=== PATIENT | male | born 1940 | race Caucasian/White ===

== ENCOUNTER 2023-09-03 18:49 | Inpatient (IN) | payer MEDICARE, OTHER ==
[~2023-09-03] VITALS: Ht 160 cm; Wt 65.2 kg
[~2023-09-03 18:49] MED LIST: AMLO5TAB16 PO; ATOR20TA PO; CALC950T2 PO; CELE-127 PO; CHOL400T58 PO; DABI150C PO; DRON400T6 PO; LIDOcaine 2% (20 mg/ml) 5ml cardiac syringe ONE; MAGNESIUM SULFATE 4 MEQ/ML (5gm/10ml) injection ONE; NORepinephrine 1 mg/ml inj IV ONE; TEST60GE2 TP; UBID100C16 PO; VITA1CAP62 PO; [UNRECOGNIZED DRUG - CODE] LEFTEYE; albumin (human) 25% 100 ML IV solution IV ONE; aminocaproic acid 250 MG/1 ML inj. ONE; calcium chloride 100 MG/1 ML inj IV ONE; heparin 1,000 units/ml 10ml inj ONE; heparin 10,000 units/1 ML INJ ONE; mannitol 12.5gm/50mL VIAL IV ONE; methylPREDNISolone sod succ 1000mg vial ONE; potassium Cl 2 mEq/ml inj IV ONE; sodium bicarbonate (8.4%) 1 mEq/ml syringe ONE
[2023-09-03 20:18] LABS: BASOPHILS # (AUTO) 0.1 X10'3 (0-0.2); BASOPHILS % (AUTO) 1.9 % (0-1); EOSINOPHILS # (AUTO) 0.2 X10'3 (0-0.9); EOSINOPHILS % (AUTO) 3.2 % (0-6); HEMATOCRIT 39.6 % (42.0-52.0); HEMOGLOBIN 13.5 g/dl (14.0-17.9); LYMPHOCYTES # (AUTO) 1.2 X10'3 (1.1-4.8); LYMPHOCYTES % (AUTO) 21.2 % (21-51); MEAN CORPUSCULAR HEMOGLOBIN 33.5 PG (27.0-31.0); MEAN CORPUSCULAR VOLUME 98.4 FL (78-98); MEAN PLATELET VOLUME 7.5 FL (7.4-10.4); MONOCYTES # (AUTO) 0.7 X10'3 (0-0.9); MONOCYTES % (AUTO) 12.5 % (2-12); NEUTROPHILS # (AUTO) 3.6 X10'3 (1.8-7.7); NEUTROPHILS % (AUTO) 61.2 % (42-75); PLATELET COUNT 229 X10'3 (140-440); RED BLOOD COUNT 4.03 X10'6 (4.70-6.10); RED CELL DISTRIBUTION WIDTH 13.9 % (11.5-14.5); WHITE BLOOD COUNT 5.9 X10'3 (4.5-11.0)
[2023-09-03 20:32] LABS: ANION GAP 11 (8-16); BILIRUBIN,TOTAL 0.9 MG/DL (0.1-1.0); BLOOD UREA NITROGEN 12 MG/DL (7-18); CALCIUM 8.6 MG/DL (8.5-10.1); CHLORIDE 102 MMOL/L (99-107); CREATININE 0.75 MG/DL (0.60-1.10); GLUCOSE 85 MG/DL (70-104); SODIUM 136 MMOL/L (135-145); TOTAL CARBON DIOXIDE 23.1 MMOL/L (24-32); TOTAL PROTEIN 6.6 G/DL (6.4-8.2); eCRCL 60 ML/MIN; eGFR > 90 ML/MIN
[2023-09-03 20:33] LABS: ALANINE AMINOTRANSFERASE 30 U/L (12-78); ALBUMIN 3.4 G/DL (3.4-5.0); ALBUMIN/GLOBULIN RATIO 1.1 (1.1-1.5); ALKALINE PHOSPHATASE 44 IU/L (46-116); ASPARTATE AMINO TRANSFERASE 30 U/L (10-37)
[2023-09-03 20:41] LABS: PRO BRAIN NATRIURETIC PEPTIDE 850 PG/ML (0-450)
[2023-09-03] MEDS ORDERED: temazepam 15mg capsule PO PRN (21:00)
[2023-09-03] MEDS ORDERED: potassium Cl 40MEQ/1/2NS 520ml 520 ML IV PRN (23:15)
[2023-09-03] MEDS ORDERED: magnesium 2GM in 50ml NS 50 ML IV PRN (23:15)
[2023-09-03] MEDS ORDERED: normal saline 1000ml 1,000 ML IV SCH (23:15)
[2023-09-03] MEDS ORDERED: HYDROcodone/acetaminophen 5mg/325mg tablet PO PRN (23:15)
[2023-09-03] MEDS ORDERED: magnesium Cl slow-release 64mg tablet PO PRN (23:15)
[2023-09-03] MEDS ORDERED: HYDROcodone/acetaminophen 10/325mg tab PO PRN (23:15)
[2023-09-03] MEDS ORDERED: morphine 2 MG/ML inj. syringe IV PRN ×2 (23:15)
[2023-09-03] MEDS ORDERED: potassium Cl 20 mEq SR tablet PO PRN ×2 (23:15)
[2023-09-03] MEDS ORDERED: ondansetron/PF 4mg/2ml inj IV PRN (23:15)
[2023-09-03] MEDS ORDERED: acetaminophen 325mg tablet PO PRN ×2 (23:15)
[2023-09-03] MEDS ORDERED: mag hydrox/Alum hydrox/simeth 30ml oral suspension PO PRN (23:15)
[2023-09-03] MEDS ORDERED: magnesium 4gm in 100ml NS 100 ML IV PRN (23:15)
[2023-09-03] MEDS ORDERED: magnesium hydroxide 30ml (MOM) UD suspension PO PRN (23:15)
--- NOTE | 2023-09-03 23:30 | NUR ---
pt placed onto in-patient bed
[2023-09-04] MEDS ORDERED: [UNRECOGNIZED DRUG - OTHER] LEFTEYE SCH (04:35)
[2023-09-04] MEDS: atorvastatin 20mg tablet PO SCH (08:00)
[2023-09-04] MEDS: docusate sod 100mg capsule PO SCH ×2 (08:00→20:00)
[2023-09-04] MEDS: amLODIPine 5mg tablet PO SCH (08:00)
[2023-09-04] MEDS: dronedarone hcl 400mg tablet PO SCH ×2 (08:00→21:16)
--- NOTE | 2023-09-04 08:49 | NUR ---
ULTRASOUND PT AT BEDSIDE
--- NOTE | 2023-09-04 08:54 | NUR ---
ED BED 15--NPO OR NOT? [id number]
--- NOTE | 2023-09-04 08:55 | NUR ---
lift team technician at bedside
--- NOTE | 2023-09-04 08:57 | NUR ---
DR THOMPSON CALLED BACK, HE IS UNABLE TO ANSWER QUESTIONS ABOUT PTS NPO STATUS AT THIS TIME, NEEDS TO GO TO A MEETING. WILL HOLD AM MEDS UNTIL ORDERS ARE CLARIFIED
--- NOTE | 2023-09-04 11:39 | NUR ---
Ambulated to restroom, gate steady. Pt positioned back in bed attached to monitors comfortable. denies complaints.
[2023-09-04] MEDS ORDERED: MESSAGE TO PHARMACY IJ ONE (13:20)
[2023-09-04 13:57] LABS: BILIRUBIN,URINE NEGATIVE (Neg); CLARITY,URINE CLEAR (Clear); COLOR,URINE YELLOW (Yellow); GLUCOSE, URINE NEGATIVE (Neg); KETONES,URINE NEGATIVE (Neg); LEUKOCYTE ESTERASE ,URINE NEGATIVE (Neg); NITRITES, URINE NEGATIVE (Neg); OCCULT BLOOD,URINE TRACE-INTACT (Neg); PH,URINE 7.5 (4.8-8.0); PROTEIN,URINE NEGATIVE (Neg)
[2023-09-04 13:59] LABS: UA COLLECTION TYPE CLN CATCH MIDSTREAM
[2023-09-04 14:10] LABS: BACTERIA,URINE FEW /HPF (Neg); SQUAMOUS EPITHELIAL CELL,UR FEW /LPF (FEW); WBC,URINE 0-4 /HPF (0-4)
[2023-09-04 14:26] LABS: ABG BASE EXCESS -2.1 mmol/L (-2.0-2.0); ABG OXYGEN SATURATION 96.5 % (94-97); ABG PCO2 (T) 27.3 mmHg (35.0-48.0); ABG PH (T) 7.481 (7.340-7.440); ABG PO2 (T) 82.4 mmHg (75.0-100.0); ALLEN'S TEST POSITIVE; FCOHb 0.6 % (0.0-3.9); FHHb 3.5 % (0.0-5.0); FMetHb 0.1 % (0.0-1.5); FO2Hb 95.8 % (94-97); MODE ROOM AIR; PATIENT TEMPERATURE 36.6; TOTAL HEMOGLOBIN 14.3 G/dl (14.0-17.9)
[2023-09-04 14:49] LABS: BASOPHILS # (AUTO) 0.1 X10'3 (0-0.2); EOSINOPHILS # (AUTO) 0.2 X10'3 (0-0.9); EOSINOPHILS % (AUTO) 3.5 % (0-6); HEMATOCRIT 39.6 % (42.0-52.0); HEMOGLOBIN 13.6 g/dl (14.0-17.9); LYMPHOCYTES # (AUTO) 1.3 X10'3 (1.1-4.8); MEAN CORPUSCULAR HEMOGLOBIN 33.9 PG (27.0-31.0); MEAN CORPUSCULAR HGB CONC 34.3 g/dL (33.0-36.5); MEAN CORPUSCULAR VOLUME 98.8 FL (78-98); MEAN PLATELET VOLUME 7.8 FL (7.4-10.4); MONOCYTES # (AUTO) 0.4 X10'3 (0-0.9); MONOCYTES % (AUTO) 8.3 % (2-12); NEUTROPHILS # (AUTO) 2.4 X10'3 (1.8-7.7); NEUTROPHILS % (AUTO) 56.2 % (42-75); PLATELET COUNT 238 X10'3 (140-440); RED BLOOD COUNT 4.01 X10'6 (4.70-6.10); RED CELL DISTRIBUTION WIDTH 13.5 % (11.5-14.5); WHITE BLOOD COUNT 4.3 X10'3 (4.5-11.0)
[2023-09-04 15:01] LABS: APTT 30 SECONDS (22-32); INR 1.1 INR; PROTHROMBIN TIME 11.7 SECONDS (9.0-12.0)
[2023-09-04 15:07] LABS: ALANINE AMINOTRANSFERASE 28 U/L (12-78); ALBUMIN 3.3 G/DL (3.4-5.0); ALKALINE PHOSPHATASE 45 IU/L (46-116); ANION GAP 6 (8-16); ASPARTATE AMINO TRANSFERASE 22 U/L (10-37); BLOOD UREA NITROGEN 10 MG/DL (7-18); BUN/CREATININE RATIO 11.2 (10.0-20.0); CALCIUM 8.6 MG/DL (8.5-10.1); CHLORIDE 103 MMOL/L (99-107); CREATININE 0.89 MG/DL (0.60-1.10); GLUCOSE 161 MG/DL (70-104); POTASSIUM 4.4 MMOL/L (3.5-5.1); SODIUM 136 MMOL/L (135-145); TOTAL CARBON DIOXIDE 26.7 MMOL/L (24-32); TOTAL PROTEIN 6.6 G/DL (6.4-8.2); eCRCL 51 ML/MIN; eGFR 82 ML/MIN
[2023-09-04 15:10] LABS: HEMOGLOBIN A1C 5.6 % (4.5-6.2)
[2023-09-04 17:15] VITALS: BP 122/69; PULSE 60; RESP 17; TEMP 98.4; O2SAT 97
--- NOTE | 2023-09-04 19:13 | NUR ---
Problems reprioritized. Patient report given, questions answered & plan of care reviewed with Alisson MENDOZA, patient stable at transfer of care. .
[2023-09-04 20:00] VITALS: RESP 16; O2SAT 98
[2023-09-04] MEDS ORDERED: enoxaparin 40mg/0.4ml syringe SQ SCH (20:00)
--- NOTE | 2023-09-04 20:47 | NUR ---
MD called for pt fluid orders. MD gave order to D/C NS at 20 mL/hr. Order read back and placed per
[2023-09-04 22:00] VITALS: BP 139/72; PULSE 62; RESP 16; TEMP 98.2; O2SAT 99
[2023-09-05] VITALS (7 sets, daily range): BP systolic 102–155; BP diastolic 50–71; PULSE 60–70; RESP 10–22; TEMP 97.2–98.2; O2SAT 96–100
--- NOTE | 2023-09-05 00:43 | NUR ---
MD called for pt having several pauses on tele, not sustaining. MD is aware of rate controlled a-fib, occasional pauses lasting up to 2.46 seconds, and occasional dips in HR down to 44 without sustaining. No orders given at this time
--- NOTE | 2023-09-05 06:27 | NUR ---
Problems reprioritized. Patient report given, questions answered & plan of care reviewed with Hannah MENDOZA. Pt stable at transfer of care
[2023-09-05] MEDS: dronedarone hcl 400mg tablet PO SCH ×2 (09:40→19:43)
[2023-09-05] MEDS: amLODIPine 5mg tablet PO SCH (09:40)
[2023-09-05] MEDS: docusate sod 100mg capsule PO SCH ×2 (09:41→19:43)
[2023-09-05] MEDS: atorvastatin 20mg tablet PO SCH (09:41)
[2023-09-05] MEDS ORDERED: ringers solution, lacted 1,000 ML IV ONE (09:45)
[2023-09-05 10:04] LABS: BASOPHILS # (AUTO) 0.1 X10'3 (0-0.2); BASOPHILS % (AUTO) 1.3 % (0-1); EOSINOPHILS # (AUTO) 0.2 X10'3 (0-0.9); EOSINOPHILS % (AUTO) 4.2 % (0-6); HEMATOCRIT 41.3 % (42.0-52.0); HEMOGLOBIN 14.1 g/dl (14.0-17.9); LYMPHOCYTES # (AUTO) 1.1 X10'3 (1.1-4.8); LYMPHOCYTES % (AUTO) 25.3 % (21-51); MEAN CORPUSCULAR HEMOGLOBIN 33.7 PG (27.0-31.0); MEAN CORPUSCULAR HGB CONC 34.1 g/dL (33.0-36.5); MEAN CORPUSCULAR VOLUME 98.8 FL (78-98); MEAN PLATELET VOLUME 7.9 FL (7.4-10.4); MONOCYTES # (AUTO) 0.4 X10'3 (0-0.9); MONOCYTES % (AUTO) 8.3 % (2-12); NEUTROPHILS # (AUTO) 2.7 X10'3 (1.8-7.7); NEUTROPHILS % (AUTO) 60.9 % (42-75); PLATELET COUNT 245 X10'3 (140-440); RED BLOOD COUNT 4.18 X10'6 (4.70-6.10); RED CELL DISTRIBUTION WIDTH 13.6 % (11.5-14.5); WHITE BLOOD COUNT 4.4 X10'3 (4.5-11.0)
[2023-09-05 10:19] LABS: ALANINE AMINOTRANSFERASE 25 U/L (12-78); ALBUMIN 3.3 G/DL (3.4-5.0); ALKALINE PHOSPHATASE 44 IU/L (46-116); ANION GAP 6 (8-16); ASPARTATE AMINO TRANSFERASE 23 U/L (10-37); BILIRUBIN,TOTAL 0.7 MG/DL (0.1-1.0); BLOOD UREA NITROGEN 11 MG/DL (7-18); BUN/CREATININE RATIO 13.6 (10.0-20.0); CALCIUM 8.9 MG/DL (8.5-10.1); CHLORIDE 100 MMOL/L (99-107); CREATININE 0.81 MG/DL (0.60-1.10); GLUCOSE 128 MG/DL (70-104); POTASSIUM 3.8 MMOL/L (3.5-5.1); SODIUM 134 MMOL/L (135-145); TOTAL CARBON DIOXIDE 27.8 MMOL/L (24-32); TOTAL PROTEIN 6.7 G/DL (6.4-8.2); eCRCL 56 ML/MIN; eGFR > 90 ML/MIN
[2023-09-05] MEDS ORDERED: ondansetron 4mg rapidly disintigrating tab PO PRN (14:45)
--- NOTE | 2023-09-05 18:54 | NUR ---
Problems reprioritized. Patient report given, questions answered & plan of care reviewed with Krystal MENDOZA, patient stable at transfer of care.
[2023-09-06] VITALS (17 sets, daily range): BP systolic 100–126; BP diastolic 48–69; PULSE 57–105; RESP 12–19; TEMP 97.9–98.2; O2SAT 96–98
[2023-09-06] MEDS ORDERED: cefazolin 2gm/D5W 100mL 100 ML IV ONE (05:30)
[2023-09-06] MEDS ORDERED: dextrose 50%-water 50ml dispensing syringe IV PRN ×2 (05:30→16:50)
[2023-09-06] MEDS ORDERED: vancomycin/NS 1 GM ADD-VANTAGE 250 ML IV ONE (05:30)
[2023-09-06] MEDS ORDERED: insulin glargine (Lantus) pen - multi-dose SQ PRN ×2 (05:30→16:50)
[2023-09-06] MEDS ORDERED: gabapentin 400mg capsule PO ONE (05:30)
[2023-09-06] MEDS ORDERED: LORazepam 2 mg/ml vial IV ONE (06:00)
[2023-09-06] MEDS ORDERED: famotidine/PF 10 mg/ml inj IV ONE (06:00)
--- NOTE | 2023-09-06 06:35 | NUR ---
Patient report given, questions answered & plan of care reviewed with KELLY Young and KELLY Jones
[2023-09-06] MEDS ORDERED: SUfentanil 50mcg/ml 1ml amp IV ONE (07:24)
[2023-09-06] MEDS ORDERED: MIDAZolam 1mg/ml 10ml vial ONE (07:24)
[2023-09-06] MEDS ORDERED: BUPIVAcaine/PF 2.5mg/ml (0.25%) 10ml vial ONE (07:41)
[2023-09-06] MEDS ORDERED: BUPIVACAINE liposomal/PF 13.3 MG/ML vial IM ONE (07:41)
[2023-09-06] MEDS ORDERED: fentaNYL/PF 50MCG/1 ML 2ML syringe IV PRN (08:10)
[2023-09-06] MEDS ORDERED: midazolam 1 mg/ML 2ml injection IV PRN (08:10)
[2023-09-06] MEDS ORDERED: propofol 1000mg/100ml bottle 100 ML IV SCH (08:10)
[2023-09-06] MEDS ORDERED: FENTANYL-0.9 % NACL/PF 100 ML IV PRN (08:10)
[2023-09-06] MEDS ORDERED: nitroGLYCERIN in D5W 50mg/250ml (Tridil) infusion IV ONE (08:22)
[2023-09-06] MEDS ORDERED: DOBUTamine/D5W 500mg/250ml premix IV ONE (08:22)
[2023-09-06] MEDS ORDERED: isoflurane 100ml inhalation liquid IH ONE (08:22)
[2023-09-06] MEDS ORDERED: NORepinephrine 8 MG in NS 250 ML BAG (32 mcg/ml) IV ONE (08:22)
[2023-09-06] MEDS ORDERED: protamine sulf. 10mg/ml inj. IV ONE (08:22)
[2023-09-06 09:14] LABS: ABG BASE EXCESS -3.7 mmol/L (-2.0-2.0); ABG HCO3 19.5 mmol/L (22.0-26.0); ABG PCO2 30.3 mmHg (35.0-48.0); ABG PH 7.427 (7.340-7.440); ABG PO2 472.6 mmHg (75.0-100.0); CL (ABG) 97 mmol/L (99-107); FCOHb 0.3 % (0.0-3.9); FMetHb 0.3 % (0.0-1.5); FO2Hb 98.4 % (94-97); GLUCOSE (ABG) 89 mg/dl (70-104); IONIZED CA (ABG) 0.92 mmol/L (1.10-1.30); K (ABG) 3.5 mmol/L (3.5-5.1); TOTAL HEMOGLOBIN 12.9 G/dl (14.0-17.9)
[2023-09-06] MEDS ORDERED: MESSAGE TO NURSING PO ONE ×5 (10:00)
[2023-09-06] MEDS ORDERED: rocuronium 10mg/ml inj IV ONE ×5 (10:02→15:07)
[2023-09-06] MEDS ORDERED: phenylephrine 10mg/ml inj. -priapism dosing ONE (10:02)
[2023-09-06] MEDS ORDERED: LIDOcaine 2% (20mg/ml) 5ml vial ONE (10:02)
[2023-09-06] MEDS ORDERED: etomidate 2mg/ml inj. ONE (10:02)
[2023-09-06] MEDS ORDERED: 0.9 % SODIUM CHLORIDE 10 ML VIAL ONE (10:02)
[2023-09-06 10:16] LABS: ABG BASE EXCESS -1.1 mmol/L (-2.0-2.0); ABG HCO3 21.4 mmol/L (22.0-26.0); ABG OXYGEN SATURATION 99.6 % (94-97); ABG PCO2 29.8 mmHg (35.0-48.0); ABG PH 7.475 (7.340-7.440); CL (ABG) 102 mmol/L (99-107); FCOHb 0.3 % (0.0-3.9); FHHb 0.4 % (0.0-5.0); FMetHb 0.3 % (0.0-1.5); GLUCOSE (ABG) 121 mg/dl (70-104); IONIZED CA (ABG) 1.07 mmol/L (1.10-1.30); K (ABG) 4.1 mmol/L (3.5-5.1); TOTAL HEMOGLOBIN 12.9 G/dl (14.0-17.9)
[2023-09-06 10:34] LABS: ABG BASE EXCESS 0.8 mmol/L (-2.0-2.0); ABG HCO3 23.5 mmol/L (22.0-26.0); ABG OXYGEN SATURATION 99.1 % (94-97); ABG PH 7.498 (7.340-7.440); ABG PO2 458.9 mmHg (75.0-100.0); CL (ABG) 98 mmol/L (99-107); FCOHb 0.2 % (0.0-3.9); FHHb 0.9 % (0.0-5.0); FMetHb 0.3 % (0.0-1.5); FO2Hb 98.6 % (94-97); GLUCOSE (ABG) 116 mg/dl (70-104); IONIZED CA (ABG) 0.94 mmol/L (1.10-1.30); K (ABG) 3.9 mmol/L (3.5-5.1); TOTAL HEMOGLOBIN 10.6 G/dl (14.0-17.9)
[2023-09-06 11:06] LABS: ABG BASE EXCESS VENOUS 0.3 mmol/L (-2.0 - 2.0); ABG HCO3 VENOUS 25.3 mmol/L (21.0-28.0); ABG OXYGEN SATURATION VENOUS 89.9 % (75 - 99 %); ABG PCO2 VENOUS 42.7 mmHg (41.0-54.0); ABG PH (VENOUS) 7.391 (7.310-7.450); ABG PO2 VENOUS 59.7 mmHg (25.0-35.0); CL (ABG) 101 mmol/L (99-107); FCOHb VENOUS 0.1 %; FHHb VENOUS 10.1 %; FMetHb VENOUS 0.3 % (0.0 - 0.5); FO2Hb VENOUS 89.5 %; GLUCOSE (ABG) 121 mg/dl (70-104); IONIZED CA (ABG) 1.02 mmol/L (1.10-1.30); K (ABG) 4.1 mmol/L (3.5-5.1); TOTAL HEMOGLOBIN 11.7 G/dl (14.0-17.9)
--- NOTE | 2023-09-06 11:47 | NUR ---
Pt left for OR at 0825.
[2023-09-06 11:57] LABS: ABG BASE EXCESS -0.4 mmol/L (-2.0-2.0); ABG HCO3 24.9 mmol/L (22.0-26.0); ABG OXYGEN SATURATION 99.1 % (94-97); ABG PCO2 43.5 mmHg (35.0-48.0); ABG PH 7.375 (7.340-7.440); CL (ABG) 103 mmol/L (99-107); FCOHb 0.3 % (0.0-3.9); FHHb 0.9 % (0.0-5.0); FMetHb 0.3 % (0.0-1.5); FO2Hb 98.5 % (94-97); GLUCOSE (ABG) 146 mg/dl (70-104); K (ABG) 6.2 mmol/L (3.5-5.1); TOTAL HEMOGLOBIN 11.1 G/dl (14.0-17.9)
[2023-09-06 12:37] LABS: ABG BASE EXCESS -2.6 mmol/L (-2.0-2.0); ABG HCO3 23.6 mmol/L (22.0-26.0); ABG PCO2 46.9 mmHg (35.0-48.0); ABG PO2 329.5 mmHg (75.0-100.0); CL (ABG) 102 mmol/L (99-107); FCOHb 0.3 % (0.0-3.9); FMetHb 0.3 % (0.0-1.5); FO2Hb 98.4 % (94-97); GLUCOSE (ABG) 162 mg/dl (70-104); IONIZED CA (ABG) 1.03 mmol/L (1.10-1.30); K (ABG) 4.3 mmol/L (3.5-5.1); TOTAL HEMOGLOBIN 11.6 G/dl (14.0-17.9)
[2023-09-06] MEDS: Insulin Reg/NS 100units/100mL 100 ML IV SCH (13:20)
[2023-09-06 13:22] LABS: ABG BASE EXCESS -3.1 mmol/L (-2.0-2.0); ABG HCO3 20.9 mmol/L (22.0-26.0); ABG PCO2 33.7 mmHg (35.0-48.0); ABG PH 7.411 (7.340-7.440); ABG PO2 345.3 mmHg (75.0-100.0); CL (ABG) 103 mmol/L (99-107); FCOHb 0.3 % (0.0-3.9); FMetHb 0.3 % (0.0-1.5); FO2Hb 98.4 % (94-97); GLUCOSE (ABG) 142 mg/dl (70-104); IONIZED CA (ABG) 1.01 mmol/L (1.10-1.30); K (ABG) 3.9 mmol/L (3.5-5.1); TOTAL HEMOGLOBIN 10.1 G/dl (14.0-17.9)
[2023-09-06 13:53] LABS: ABG BASE EXCESS -0.8 mmol/L (-2.0-2.0); ABG HCO3 23.2 mmol/L (22.0-26.0); ABG OXYGEN SATURATION 99.1 % (94-97); ABG PCO2 35.9 mmHg (35.0-48.0); ABG PH 7.429 (7.340-7.440); ABG PO2 343.5 mmHg (75.0-100.0); CL (ABG) 103 mmol/L (99-107); FCOHb 0.3 % (0.0-3.9); FHHb 0.9 % (0.0-5.0); FMetHb 0.3 % (0.0-1.5); FO2Hb 98.5 % (94-97); GLUCOSE (ABG) 130 mg/dl (70-104); IONIZED CA (ABG) 1.01 mmol/L (1.10-1.30); K (ABG) 4.5 mmol/L (3.5-5.1); TOTAL HEMOGLOBIN 10.1 G/dl (14.0-17.9)
[2023-09-06] MEDS ORDERED: ceFAZolin 1000mg inj ONE ×2 (14:02→15:54)
[2023-09-06 14:19] LABS: ABG BASE EXCESS -0.5 mmol/L (-2.0-2.0); ABG HCO3 24.5 mmol/L (22.0-26.0); ABG OXYGEN SATURATION 98.9 % (94-97); ABG PCO2 41.6 mmHg (35.0-48.0); ABG PH 7.388 (7.340-7.440); ABG PO2 393.3 mmHg (75.0-100.0); CL (ABG) 100 mmol/L (99-107); FCOHb 0.3 % (0.0-3.9); FHHb 1.1 % (0.0-5.0); FMetHb 0.3 % (0.0-1.5); FO2Hb 98.3 % (94-97); GLUCOSE (ABG) 113 mg/dl (70-104); IONIZED CA (ABG) 1.35 mmol/L (1.10-1.30); K (ABG) 4.2 mmol/L (3.5-5.1); TOTAL HEMOGLOBIN 9.6 G/dl (14.0-17.9)
[2023-09-06 14:47] LABS: ABG BASE EXCESS -1.5 mmol/L (-2.0-2.0); ABG HCO3 22.6 mmol/L (22.0-26.0); ABG PCO2 35.7 mmHg (35.0-48.0); ABG PH 7.419 (7.340-7.440); ABG PO2 294.2 mmHg (75.0-100.0); CL (ABG) 104 mmol/L (99-107); FCOHb 0.3 % (0.0-3.9); FMetHb 0.3 % (0.0-1.5); FO2Hb 98.4 % (94-97); GLUCOSE (ABG) 96 mg/dl (70-104); IONIZED CA (ABG) 1.16 mmol/L (1.10-1.30); K (ABG) 3.5 mmol/L (3.5-5.1); TOTAL HEMOGLOBIN 11.1 G/dl (14.0-17.9)
[2023-09-06 15:02] LABS: ABG BASE EXCESS -3.3 mmol/L (-2.0-2.0); ABG PCO2 40.6 mmHg (35.0-48.0); ABG PH 7.352 (7.340-7.440); ABG PO2 133.3 mmHg (75.0-100.0); CL (ABG) 105 mmol/L (99-107); FCOHb 0.3 % (0.0-3.9); FMetHb 0.3 % (0.0-1.5); FO2Hb 97.4 % (94-97); GLUCOSE (ABG) 96 mg/dl (70-104); IONIZED CA (ABG) 1.14 mmol/L (1.10-1.30); K (ABG) 3.2 mmol/L (3.5-5.1); TOTAL HEMOGLOBIN 11.3 G/dl (14.0-17.9)
[2023-09-06] MEDS ORDERED: dexamethasone sod phosphate 4mg/ml inj. ONE (15:08)
[2023-09-06] MEDS ORDERED: ondansetron/PF 4mg/2ml inj ONE (15:08)
[2023-09-06] MEDS ORDERED: albumin (Human) 5% 250ml 250 ML IV ONE ×2 (16:46→19:30)
[2023-09-06] MEDS ORDERED: morphine 2 MG/ML inj. syringe IV PRN (16:50)
[2023-09-06] MEDS ORDERED: Insulin Reg/NS 100units/100mL 100 ML IV SCH (16:50)
[2023-09-06] MEDS ORDERED: magnesium 2GM in 50ml NS 50 ML IV PRN (16:50)
[2023-09-06] MEDS ORDERED: HYDROcodone/acetaminophen 10/325mg tab PO PRN ×2 (16:50)
[2023-09-06] MEDS ORDERED: magnesium hydroxide 30ml (MOM) UD suspension PO PRN (16:50)
[2023-09-06] MEDS ORDERED: nitroGLYCERIN-Tridil 50MG/D5W 250 ML IV PRN (16:50)
[2023-09-06] MEDS ORDERED: acetaminophen 325mg tablet PO PRN (16:50)
[2023-09-06] MEDS ORDERED: magnesium 4gm in 100ml NS 100 ML IV PRN (16:50)
[2023-09-06] MEDS ORDERED: normal saline 250ml IV soln 250 ML IV PRN (16:50)
[2023-09-06] MEDS ORDERED: sodium phosphate inj. 15 MMOL in dextrose 5%-water 250 ML IV PRN (16:50)
[2023-09-06] MEDS ORDERED: potassium Cl 20 mEq SR tablet PO PRN (16:50)
[2023-09-06] MEDS ORDERED: morphine 4 MG/ML inj SYRINge IV PRN (16:50)
[2023-09-06] MEDS ORDERED: ondansetron/PF 4mg/2ml inj IV PRN (16:50)
[2023-09-06] MEDS ORDERED: potassium Cl 40MEQ/1/2NS 520ml 520 ML IV PRN (16:50)
[2023-09-06] MEDS ORDERED: DOPamine 400mg/D5W 250ml 250 ML IV PRN (16:50)
[2023-09-06] MEDS ORDERED: mineral oil 133ml enema RC PRN (16:50)
[2023-09-06] MEDS ORDERED: potassium Cl 40MEQ/270ML bag 250 ML IV PRN (16:50)
[2023-09-06] MEDS ORDERED: potassium CL 10mEq/100ml bag 100 ML IV PRN (16:50)
[2023-09-06] MEDS ORDERED: niCARDipine-NS 40mg/200ml IVPB 200 ML IV PRN (16:50)
[2023-09-06] MEDS ORDERED: sodium phosphate inj. 30 MMOL in dextrose 5%-water 250 ML IV PRN (16:50)
[2023-09-06] MEDS ORDERED: bisacodyl 10mg suppository rectal RC PRN (16:50)
[2023-09-06] MEDS ORDERED: Neutra Phos packet PO PRN (16:50)
[2023-09-06] MEDS ORDERED: metoclopramide 5 mg/ml inj IV PRN (16:50)
--- NOTE | 2023-09-06 17:00 | NUR ---
Received to room , accompanied by Davy Marcos, PAC and surgical crew. Placed on ventilator, to dairy farm supervisor, arterial line and PA line pressure zeroed & monitored. Chest tubes to suction at 20 cm. Nguyen cath to gravity drainage. Dressings are dry and intact. See assessment record. All vasoactive drugs are infusing via central line.
[2023-09-06 17:07] LABS: ABG BASE EXCESS -7.3 mmol/L (-2.0-2.0); ABG HCO3 20.5 mmol/L (22.0-26.0); ABG OXYGEN SATURATION 98.5 % (94-97); ABG PCO2 (T) 49.6 mmHg (35.0-48.0); ABG PH (T) 7.232 (7.340-7.440); ABG PO2 (T) 169.1 mmHg (75.0-100.0); FCOHb 0.4 % (0.0-3.9); FHHb 1.5 % (0.0-5.0); FMetHb 0.5 % (0.0-1.5); FO2Hb 97.6 % (94-97); MODE VENT - SIMV; PATIENT TEMPERATURE 36.6; PEEP 5 cm H2O; RESPIRATORY RATE 12 b/min; TIDAL VOLUME 500 mL; TOTAL HEMOGLOBIN 14.1 G/dl (14.0-17.9)
[2023-09-06] MEDS: sodium chloride 0.45% 1,000 ML IV SCH (17:24)
[2023-09-06] MEDS: albumin (Human) 5% 250ml 250 ML IV PRN ×4 (17:26→19:47)
[2023-09-06] MEDS ORDERED: epiNEPHrine inj 5 MG, calcium chloride inj. 1,000 MG in normal saline 250ml IV soln 235 ML IV SCH (17:30)
[2023-09-06 17:35] LABS: HEMOGLOBIN 13.4 g/dl (14.0-17.9); PLATELET COUNT 142 X10'3 (140-440)
[2023-09-06 17:36] LABS: BASOPHILS # (AUTO) 0.1 X10'3 (0-0.2); BASOPHILS % (AUTO) 0.4 % (0-1); EOSINOPHILS % (AUTO) 0.2 % (0-6); HEMATOCRIT 40.6 % (42.0-52.0); LYMPHOCYTES # (AUTO) 2.3 X10'3 (1.1-4.8); LYMPHOCYTES % (AUTO) 18.1 % (21-51); MEAN CORPUSCULAR HEMOGLOBIN 33.1 PG (27.0-31.0); MEAN CORPUSCULAR VOLUME 100.2 FL (78-98); MEAN PLATELET VOLUME 7.9 FL (7.4-10.4); MONOCYTES # (AUTO) 1.3 X10'3 (0-0.9); MONOCYTES % (AUTO) 9.8 % (2-12); NEUTROPHILS # (AUTO) 9.3 X10'3 (1.8-7.7); NEUTROPHILS % (AUTO) 71.5 % (42-75); RED BLOOD COUNT 4.05 X10'6 (4.70-6.10); RED CELL DISTRIBUTION WIDTH 13.4 % (11.5-14.5)
[2023-09-06 17:39] LABS: APTT 28 SECONDS (22-32); FIBRINOGEN 180 MG/DL (177-424); INR 1.3 INR; PROTHROMBIN TIME 13.6 SECONDS (9.0-12.0)
[2023-09-06 17:42] LABS: ALANINE AMINOTRANSFERASE 26 U/L (12-78); ALBUMIN 3.5 G/DL (3.4-5.0); ALBUMIN/GLOBULIN RATIO 1.8 (1.1-1.5); ALKALINE PHOSPHATASE 27 IU/L (46-116); ASPARTATE AMINO TRANSFERASE 46 U/L (10-37); BILIRUBIN,TOTAL 1.6 MG/DL (0.1-1.0); BLOOD UREA NITROGEN 9 MG/DL (7-18); CALCIUM 8.1 MG/DL (8.5-10.1); CHLORIDE 106 MMOL/L (99-107); GLUCOSE 181 MG/DL (70-104); MAGNESIUM 3.3 MG/DL (1.5-2.4); PHOSPHORUS 4.1 MG/DL (2.3-4.5); POTASSIUM 3.1 MMOL/L (3.5-5.1); TOTAL CARBON DIOXIDE 24.3 MMOL/L (24-32); TOTAL PROTEIN 5.5 G/DL (6.4-8.2); eCRCL 45 ML/MIN; eGFR 71 ML/MIN
[2023-09-06 17:51] LABS: ANION GAP 13 (8-16); SODIUM 143 MMOL/L (135-145)
--- NOTE | 2023-09-06 18:00 | NUR ---
Got report from Lawson, all questions answered.
--- NOTE | 2023-09-06 18:30 | NUR ---
Problems reprioritized. Patient report given, questions answered & plan of care reviewed with KELLY Zamarripa.
--- NOTE | 2023-09-06 18:30 | NUR ---
Dr. Dias in to see pt. Discussed current therapies and plan of care for the night.
[2023-09-06] MEDS ORDERED: sodium bicarbonate (8.4%) 1 mEq/ml syringe IV ONE (18:35)
[2023-09-06] MEDS: potassium Cl 20mEq/100mL bag 100 ML IV PRN ×2 (18:40→19:29)
[2023-09-06] MEDS: atorvastatin 10mg tablet PO SCH (19:46)
[2023-09-06] MEDS: mupirocin 2% nasal ointment 1gm UD NS SCH (19:46)
[2023-09-06] MEDS: acetaminophen 325mg tablet PO PRN (19:46)
[2023-09-06] MEDS: sennosides/docusate sodium tablet PO SCH (19:46)
[2023-09-06] MEDS ORDERED: vancomycin/NS 1 GM ADD-VANTAGE 250 ML IV SCH (20:00)
--- NOTE | 2023-09-06 20:37 | NUR ---
Dr. Dias called to check on pt. Updated on all therapies and assessments. He'd like an abg to see if he's a little acidotic.
[2023-09-06 20:44] LABS: ABG BASE EXCESS 0.6 mmol/L (-2.0-2.0); ABG HCO3 25.4 mmol/L (22.0-26.0); ABG OXYGEN SATURATION 95.5 % (94-97); ABG PCO2 (T) 41.1 mmHg (35.0-48.0); ABG PH (T) 7.408 (7.340-7.440); FCOHb 0.4 % (0.0-3.9); FHHb 4.5 % (0.0-5.0); FMetHb 0.3 % (0.0-1.5); FO2Hb 94.8 % (94-97); MODE VENT - SIMV; PEEP 5 cm H2O; RESPIRATORY RATE 16 b/min; TIDAL VOLUME 500 mL; TOTAL HEMOGLOBIN 10.9 G/dl (14.0-17.9)
--- NOTE | 2023-09-06 20:54 | NUR ---
notified Dr. Dias of the ABG. OK to keep the levo that was running from anesthesia on so the order was placed for that. He's ok with his fluid volume status now. Aware pt is still sleepy and make take a long time to wake up given his long anesthesia time. OK for precedex low dose if really needed but would prefer to not use anything if able. OK to extubate if he meets parameters during the night and wakes up.
[2023-09-06] MEDS: NORepinephrine 8mg/ 250ml NS 250 ML IV SCH (20:55)
[2023-09-06 23:04] LABS: BASOPHILS % (AUTO) 0.2 % (0-1); EOSINOPHILS # (AUTO) 0.1 X10'3 (0-0.9); HEMATOCRIT 30.5 % (42.0-52.0); HEMOGLOBIN 10.4 g/dl (14.0-17.9); LYMPHOCYTES # (AUTO) 0.3 X10'3 (1.1-4.8); LYMPHOCYTES % (AUTO) 3.5 % (21-51); MEAN CORPUSCULAR HEMOGLOBIN 33.9 PG (27.0-31.0); MEAN CORPUSCULAR HGB CONC 34.2 g/dL (33.0-36.5); MEAN CORPUSCULAR VOLUME 99.2 FL (78-98); MEAN PLATELET VOLUME 7.8 FL (7.4-10.4); MONOCYTES # (AUTO) 0.3 X10'3 (0-0.9); MONOCYTES % (AUTO) 3.6 % (2-12); NEUTROPHILS # (AUTO) 6.7 X10'3 (1.8-7.7); NEUTROPHILS % (AUTO) 91.7 % (42-75); PLATELET COUNT 89 X10'3 (140-440); RED BLOOD COUNT 3.07 X10'6 (4.70-6.10); RED CELL DISTRIBUTION WIDTH 13.4 % (11.5-14.5); WHITE BLOOD COUNT 7.4 X10'3 (4.5-11.0)
[2023-09-06 23:06] LABS: ANION GAP 8 (8-16); BLOOD UREA NITROGEN 10 MG/DL (7-18); CALCIUM 7.7 MG/DL (8.5-10.1); CHLORIDE 108 MMOL/L (99-107); CREATININE 0.83 MG/DL (0.60-1.10); GLUCOSE 147 MG/DL (70-104); MAGNESIUM 2.6 MG/DL (1.5-2.4); PHOSPHORUS 1.8 MG/DL (2.3-4.5); SODIUM 140 MMOL/L (135-145); TOTAL CARBON DIOXIDE 24.3 MMOL/L (24-32); eCRCL 54 ML/MIN; eGFR 88 ML/MIN
[2023-09-06] MEDS: ceFAZolin/D5W- 1GM premix 50 ML IV SCH (23:56)
[2023-09-07] VITALS (28 sets, daily range): BP systolic 94–148; BP diastolic 44–77; PULSE 70–98; RESP 8–21; O2SAT 92–98
[2023-09-07 00:12] LABS: PLATELET ESTIMATE DECREASED; TOTAL CELLS COUNTED 100
[2023-09-07] MEDS ORDERED: CALCIUM GLUC 1gm/50ml NACL,iso 50 ML IV ONE ×2 (00:35→13:30)
[2023-09-07] MEDS ORDERED: albumin (Human) 5% 250ml 250 ML IV ONE ×2 (00:35→11:20)
[2023-09-07 01:21] LABS: ABG BASE EXCESS 0.3 mmol/L (-2.0-2.0); ABG OXYGEN SATURATION 95.3 % (94-97); ABG PCO2 (T) 41.6 mmHg (35.0-48.0); ABG PH (T) 7.399 (7.340-7.440); ABG PO2 (T) 83.2 mmHg (75.0-100.0); FCOHb 0.5 % (0.0-3.9); FHHb 4.7 % (0.0-5.0); FMetHb 0.3 % (0.0-1.5); FO2Hb 94.5 % (94-97); MODE VENT - CPAP; PATIENT TEMPERATURE 37.6; PEEP 5 cm H2O; TOTAL HEMOGLOBIN 9.7 G/dl (14.0-17.9)
--- NOTE | 2023-09-07 01:48 | NUR ---
Extubated at 0132.
[2023-09-07 03:45] LABS: BASOPHILS % (AUTO) 0.1 % (0-1); EOSINOPHILS % (AUTO) 0.1 % (0-6); HEMATOCRIT 27.5 % (42.0-52.0); HEMOGLOBIN 9.3 g/dl (14.0-17.9); LYMPHOCYTES # (AUTO) 0.3 X10'3 (1.1-4.8); LYMPHOCYTES % (AUTO) 4.8 % (21-51); MEAN CORPUSCULAR HEMOGLOBIN 33.7 PG (27.0-31.0); MEAN CORPUSCULAR HGB CONC 33.8 g/dL (33.0-36.5); MEAN CORPUSCULAR VOLUME 99.5 FL (78-98); MEAN PLATELET VOLUME 8.2 FL (7.4-10.4); MONOCYTES # (AUTO) 0.5 X10'3 (0-0.9); MONOCYTES % (AUTO) 8.3 % (2-12); NEUTROPHILS # (AUTO) 5.7 X10'3 (1.8-7.7); NEUTROPHILS % (AUTO) 86.7 % (42-75); PLATELET COUNT 82 X10'3 (140-440); RED BLOOD COUNT 2.77 X10'6 (4.70-6.10); RED CELL DISTRIBUTION WIDTH 13.7 % (11.5-14.5); WHITE BLOOD COUNT 6.6 X10'3 (4.5-11.0)
[2023-09-07 03:49] LABS: APTT 38 SECONDS (22-32); INR 1.2 INR
[2023-09-07 03:53] LABS: ALANINE AMINOTRANSFERASE 21 U/L (12-78); ALBUMIN 3.7 G/DL (3.4-5.0); ALBUMIN/GLOBULIN RATIO 2.6 (1.1-1.5); ALKALINE PHOSPHATASE 18 IU/L (46-116); ANION GAP 7 (8-16); ASPARTATE AMINO TRANSFERASE 46 U/L (10-37); BLOOD UREA NITROGEN 11 MG/DL (7-18); BUN/CREATININE RATIO 15.3 (10.0-20.0); CALCIUM 7.6 MG/DL (8.5-10.1); CHLORIDE 110 MMOL/L (99-107); CREATININE 0.72 MG/DL (0.60-1.10); GLUCOSE 87 MG/DL (70-104); MAGNESIUM 2.7 MG/DL (1.5-2.4); PHOSPHORUS 3.9 MG/DL (2.3-4.5); POTASSIUM 4.2 MMOL/L (3.5-5.1); SODIUM 142 MMOL/L (135-145); TOTAL CARBON DIOXIDE 25.2 MMOL/L (24-32); TOTAL PROTEIN 5.1 G/DL (6.4-8.2); eCRCL 63 ML/MIN; eGFR > 90 ML/MIN
[2023-09-07] MEDS ORDERED: DOBUTamine-DoBUTrex 500mg/D5W 250 ML IV SCH (04:10)
[2023-09-07] MEDS: DOBUTamine-DoBUTrex 500mg/D5W 250 ML IV SCH (04:14)
[2023-09-07] MEDS: potassium Cl 20mEq/100mL bag 100 ML IV PRN ×2 (04:24→05:46)
--- NOTE | 2023-09-07 06:30 | NUR ---
Patient in room ICU 2043. I have received report from KELLY Zamarripa and had the opportunity to ask questions and assume patient care.
[2023-09-07] MEDS ORDERED: metoprolol tartrate 12.5mg (1/2 tablet) PO SCH (08:00)
[2023-09-07] MEDS: ceFAZolin/D5W- 1GM premix 50 ML IV SCH ×3 (08:43→23:11)
[2023-09-07] MEDS: mupirocin 2% nasal ointment 1gm UD NS SCH ×2 (08:44→20:05)
[2023-09-07] MEDS: sennosides/docusate sodium tablet PO SCH ×2 (08:44→20:05)
[2023-09-07] MEDS: aspirin 81mg tab.chew PO SCH (08:44)
[2023-09-07 09:11] LABS: ACT @ 1.70 U 226 SEC (193-297); ACT @ 2.84 U 316 SEC (260-420); BASELINE ACT 122 SEC (101-148); PATIENT WEIGHT 61.0k KG
[2023-09-07] MEDS ORDERED: HYDROcodone/acetaminophen 10/325mg tab PO PRN (11:40)
[2023-09-07] MEDS ORDERED: morphine 2 MG/ML inj. syringe IV PRN (11:50)
[2023-09-07] MEDS ORDERED: amiodarone 200mg tablet PO ONE (11:50)
[2023-09-07 12:44] LABS: BILIRUBIN,DIRECT 0.3 MG/DL (0-0.3); THYROID STIMULATING HORMONE 1.72 ulU/ml (0.34-4.50)
[2023-09-07] MEDS ORDERED: CALCIUM GLUC 1gm/50ml NACL,iso 100 ML IV ONE (12:55)
[2023-09-07] MEDS ORDERED: acetaminophen 1,000mg/100ml IV 100 ML IV ONE (12:55)
[2023-09-07 13:38] LABS: BASOPHILS % (AUTO) 0.1 % (0-1); EOSINOPHILS % (AUTO) 0 % (0-6); HEMATOCRIT 26.4 % (42.0-52.0); HEMOGLOBIN 9.1 g/dl (14.0-17.9); LYMPHOCYTES # (AUTO) 0.6 X10'3 (1.1-4.8); LYMPHOCYTES % (AUTO) 7.6 % (21-51); MEAN CORPUSCULAR HEMOGLOBIN 34.3 PG (27.0-31.0); MEAN CORPUSCULAR HGB CONC 34.3 g/dL (33.0-36.5); MEAN CORPUSCULAR VOLUME 100.2 FL (78-98); MONOCYTES # (AUTO) 0.5 X10'3 (0-0.9); MONOCYTES % (AUTO) 6.7 % (2-12); NEUTROPHILS # (AUTO) 6.6 X10'3 (1.8-7.7); NEUTROPHILS % (AUTO) 85.6 % (42-75); PLATELET COUNT 77 X10'3 (140-440); RED BLOOD COUNT 2.64 X10'6 (4.70-6.10); RED CELL DISTRIBUTION WIDTH 13.8 % (11.5-14.5); WHITE BLOOD COUNT 7.7 X10'3 (4.5-11.0)
[2023-09-07] MEDS ORDERED: mineral oil/petrolatum ophthal oint EACHEYE SCH (14:00)
--- NOTE | 2023-09-07 18:30 | NUR ---
Problems reprioritized. Patient report given, questions answered & plan of care reviewed with KELLY Zamarripa.
[2023-09-07] MEDS: NORepinephrine 8mg/ 250ml NS 250 ML IV SCH (18:38)
[2023-09-07] MEDS: atorvastatin 10mg tablet PO SCH (20:05)
[2023-09-07] MEDS: amiodarone 200mg tablet PO SCH (20:05)
--- NOTE | 2023-09-07 22:14 | NUR ---
Spoke with Dr. Dias about pt's BPs being adequate on 2mcg/kg/min of Dobutamine. He said to wean the dobutamine very slowly by 0.5mls/hr (about 0.25mcg/kg/min) but keep SBP > 110..
[2023-09-07] MEDS: Insulin Reg/NS 100units/100mL 100 ML IV SCH (22:40)
[2023-09-07] MEDS: acetaminophen 325mg tablet PO PRN (23:12)
[2023-09-08] VITALS (26 sets, daily range): BP systolic 96–149; BP diastolic 55–88; PULSE 70–89; RESP 13–21; O2SAT 92–99
[2023-09-08 02:40] LABS: BASOPHILS % (AUTO) 0.1 % (0-1); EOSINOPHILS % (AUTO) 0 % (0-6); HEMATOCRIT 26.6 % (42.0-52.0); LYMPHOCYTES # (AUTO) 0.7 X10'3 (1.1-4.8); LYMPHOCYTES % (AUTO) 9.1 % (21-51); MEAN CORPUSCULAR HEMOGLOBIN 33.5 PG (27.0-31.0); MEAN CORPUSCULAR HGB CONC 33.7 g/dL (33.0-36.5); MEAN CORPUSCULAR VOLUME 99.5 FL (78-98); MEAN PLATELET VOLUME 8.7 FL (7.4-10.4); MONOCYTES # (AUTO) 0.7 X10'3 (0-0.9); MONOCYTES % (AUTO) 8.8 % (2-12); NEUTROPHILS # (AUTO) 6.3 X10'3 (1.8-7.7); PLATELET COUNT 75 X10'3 (140-440); RED BLOOD COUNT 2.68 X10'6 (4.70-6.10); RED CELL DISTRIBUTION WIDTH 13.6 % (11.5-14.5); WHITE BLOOD COUNT 7.7 X10'3 (4.5-11.0)
[2023-09-08 02:48] LABS: ALBUMIN 3.5 G/DL (3.4-5.0); ANION GAP 5 (8-16); BLOOD UREA NITROGEN 19 MG/DL (7-18); BUN/CREATININE RATIO 26.4 (10.0-20.0); CALCIUM 8.5 MG/DL (8.5-10.1); CHLORIDE 104 MMOL/L (99-107); CREATININE 0.72 MG/DL (0.60-1.10); GLUCOSE 125 MG/DL (70-104); MAGNESIUM 2.3 MG/DL (1.5-2.4); PHOSPHORUS 3.1 MG/DL (2.3-4.5); POTASSIUM 4.9 MMOL/L (3.5-5.1); SODIUM 135 MMOL/L (135-145); TOTAL CARBON DIOXIDE 25.6 MMOL/L (24-32); eCRCL 63 ML/MIN; eGFR > 90 ML/MIN
[2023-09-08] MEDS: traMADol 50MG tablet PO PRN ×2 (05:17→10:11)
--- NOTE | 2023-09-08 06:00 | NUR ---
Patient in room ICU 2043. I have received report from Dallin MENDOZA and had the opportunity to ask questions and assume patient care.
[2023-09-08] MEDS: aspirin 81mg tab.chew PO SCH (07:34)
[2023-09-08] MEDS: amiodarone 200mg tablet PO SCH ×2 (07:34→20:23)
[2023-09-08] MEDS: sennosides/docusate sodium tablet PO SCH ×2 (07:34→20:23)
[2023-09-08] MEDS: mupirocin 2% nasal ointment 1gm UD NS SCH (07:35)
[2023-09-08] MEDS: pantoprazole 40mg Tablet.DR PO SCH (07:35)
[2023-09-08] MEDS: ceFAZolin/D5W- 1GM premix 50 ML IV SCH (07:35)
--- NOTE | 2023-09-08 10:38 | NUR ---
Dr. Dias informed of patient voiding after f/c removal and has hematuria and platelets are 75. ordered HIT panel.
--- NOTE | 2023-09-08 13:52 | NUR ---
Initial: Pt s/p CABG x 3/AVR, ALISON ligation POD #2 per EMR. Pt may benefit from high protein/heart healthy nutrition education prior to discharge. Pt continues on a no concentrated sweets diet per physician with average PO intake of 84% x 8 meals including 100% for 5 meals which met 100% of estimated nutrient needs and 100% of estimated protein needs. Two BM noted on 09/05 receiving routine Senna-S bowel care per EMR. Will continue to monitor and make recommendations as appropriate. Recommendations: 1.continue no concentrated sweets diet per MD 2.monitor need for ONS if PO intake declines 3.routine bowel care 4.weekly scaled wts 5.RD to provide high protein/heart healthy nutrition education prior to discharge given s/p CABG procedure Addendum: 09/08/23 at [address] Amended: Links added.
[2023-09-08] MEDS: NORepinephrine 8mg/ 250ml NS 250 ML IV SCH (16:21)
[2023-09-08] MEDS: sodium chloride 0.45% 1,000 ML IV SCH (16:50)
--- NOTE | 2023-09-08 18:00 | NUR ---
Got report from Pam, all questions answered.
--- NOTE | 2023-09-08 18:08 | NUR ---
Problems reprioritized. Patient report given, questions answered & plan of care reviewed with Dallin MENDOZA.
--- NOTE | 2023-09-08 19:45 | NUR ---
Called Dr. ayala asking about DCing pt's Central Line, he'd like to keep it in for the night in the event he goes into rapid Afib. He would like to start him on lasix and potassium BID as well.
[2023-09-08] MEDS: acetaminophen 325mg tablet PO PRN (20:23)
[2023-09-08] MEDS: potassium chloride 10mEq ER tablet PO SCH (20:23)
[2023-09-08] MEDS: furosemide 20MG tablet PO SCH (20:23)
[2023-09-08] MEDS: atorvastatin 10mg tablet PO SCH (20:23)
[2023-09-09] VITALS (20 sets, daily range): BP systolic 98–144; BP diastolic 63–88; PULSE 75–95; RESP 14–24; O2SAT 93–97
[2023-09-09 02:30] LABS: ALBUMIN 3.3 G/DL (3.4-5.0); ANION GAP 4 (8-16); BLOOD UREA NITROGEN 21 MG/DL (7-18); BUN/CREATININE RATIO 28.8 (10.0-20.0); CALCIUM 8.3 MG/DL (8.5-10.1); CHLORIDE 101 MMOL/L (99-107); CREATININE 0.73 MG/DL (0.60-1.10); GLUCOSE 108 MG/DL (70-104); PHOSPHORUS 2.7 MG/DL (2.3-4.5); POTASSIUM 4.2 MMOL/L (3.5-5.1); SODIUM 133 MMOL/L (135-145); TOTAL CARBON DIOXIDE 28.2 MMOL/L (24-32); eCRCL 62 ML/MIN; eGFR > 90 ML/MIN
[2023-09-09 02:38] LABS: BASOPHILS % (AUTO) 0.2 % (0-1); EOSINOPHILS % (AUTO) 0.1 % (0-6); HEMATOCRIT 27.8 % (42.0-52.0); HEMOGLOBIN 9.6 g/dl (14.0-17.9); LYMPHOCYTES % (AUTO) 12.1 % (21-51); MEAN CORPUSCULAR HEMOGLOBIN 34.1 PG (27.0-31.0); MEAN CORPUSCULAR HGB CONC 34.5 g/dL (33.0-36.5); MEAN CORPUSCULAR VOLUME 98.9 FL (78-98); MEAN PLATELET VOLUME 8.7 FL (7.4-10.4); MONOCYTES # (AUTO) 0.7 X10'3 (0-0.9); MONOCYTES % (AUTO) 8.1 % (2-12); NEUTROPHILS # (AUTO) 6.4 X10'3 (1.8-7.7); NEUTROPHILS % (AUTO) 79.5 % (42-75); PLATELET COUNT 94 X10'3 (140-440); RED BLOOD COUNT 2.81 X10'6 (4.70-6.10); RED CELL DISTRIBUTION WIDTH 13.3 % (11.5-14.5)
[2023-09-09] MEDS ORDERED: potassium Cl 40MEQ/270ML bag 270 ML IV PRN (02:56)
[2023-09-09] MEDS: DOBUTamine-DoBUTrex 500mg/D5W 250 ML IV SCH (04:14)
--- NOTE | 2023-09-09 07:04 | NUR ---
Patient in room ICU 2043. I have received report from Dallin MENDOZA and had the opportunity to ask questions and assume patient care.
[2023-09-09] MEDS: pantoprazole 40mg Tablet.DR PO SCH (07:30)
[2023-09-09] MEDS: aspirin 81mg tab.chew PO SCH (08:32)
[2023-09-09] MEDS: sennosides/docusate sodium tablet PO SCH ×2 (08:32→22:50)
[2023-09-09] MEDS: furosemide 20MG tablet PO SCH ×2 (08:33→22:51)
[2023-09-09] MEDS: potassium chloride 10mEq ER tablet PO SCH (08:33)
[2023-09-09] MEDS: amiodarone 200mg tablet PO SCH ×2 (08:33→22:51)
[2023-09-09] MEDS ORDERED: magnesium 2GM in 50ml NS 50 ML IV PRN (09:15)
[2023-09-09] MEDS ORDERED: magnesium 4gm in 100ml NS 100 ML IV PRN (09:15)
[2023-09-09] MEDS ORDERED: potassium Cl 40MEQ/1/2NS 520ml 520 ML IV PRN (09:15)
[2023-09-09] MEDS ORDERED: potassium CL 10mEq/100ml bag 100 ML IV PRN (09:15)
[2023-09-09] MEDS ORDERED: potassium Cl 20mEq/100mL bag 100 ML IV PRN (09:15)
[2023-09-09] MEDS ORDERED: potassium Cl 40MEQ/270ML bag 250 ML IV PRN (09:15)
[2023-09-09] MEDS ORDERED: potassium Cl 20 mEq SR tablet PO PRN ×2 (09:15)
--- NOTE | 2023-09-09 11:14 | NUR ---
CABG consult: Pt seen at bedside for high protein/heart healthy nutrition education. RD contact also provided and encouraged pt to reach out for any nutrition questions or concerns. Noted pt's PO intake 0-50% x last 3 meals though prior was eating 100% x 5 meals. Pt request vegetarian diet since he eats that at home and is agreeable to Ensure BIDBD chocolate and strawberry flavor since his appetite hasn't be great for the last two days per pt's reports. Communicated pt's preferences with RN. Noted LBM on 09/05 receiving routine senna-s with additional PRN bowel care available; discussed with RN. Addendum: 09/09/23 at [address] Amended: Links added.
[2023-09-09] MEDS: metoclopramide 5 mg/ml inj IV SCH ×3 (13:08→22:50)
[2023-09-09] MEDS: lactose-reduced food (Ensure Enlive) - 237ml bottle PO SCH (18:05)
[2023-09-09] MEDS: magnesium Cl slow-release 64mg tablet PO SCH (22:51)
[2023-09-09] MEDS: atorvastatin 10mg tablet PO SCH (22:51)
[2023-09-10] VITALS (8 sets, daily range): BP systolic 99–123; BP diastolic 58–83; PULSE 76–91; RESP 15–22; TEMP 97–97.8; O2SAT 90–98
[2023-09-10] MEDS: lactose-reduced food (Ensure Enlive) - 237ml bottle PO SCH ×2 (08:00→20:00)
[2023-09-10] MEDS: magnesium Cl slow-release 64mg tablet PO SCH ×2 (08:16→21:55)
[2023-09-10] MEDS: aspirin 81mg tab.chew PO SCH (08:17)
[2023-09-10] MEDS: furosemide 20MG tablet PO SCH (08:17)
[2023-09-10] MEDS: amiodarone 200mg tablet PO SCH ×2 (08:17→21:55)
[2023-09-10] MEDS: pantoprazole 40mg Tablet.DR PO SCH (08:17)
[2023-09-10] MEDS: sennosides/docusate sodium tablet PO SCH ×2 (08:17→20:00)
[2023-09-10] MEDS: metoclopramide 5 mg/ml inj IV SCH ×2 (08:20→15:54)
[2023-09-10 08:55] LABS: BASOPHILS % (AUTO) 0.4 % (0-1); EOSINOPHILS # (AUTO) 0.1 X10'3 (0-0.9); EOSINOPHILS % (AUTO) 0.9 % (0-6); HEMATOCRIT 30.9 % (42.0-52.0); HEMOGLOBIN 10.6 g/dl (14.0-17.9); LYMPHOCYTES # (AUTO) 1.1 X10'3 (1.1-4.8); LYMPHOCYTES % (AUTO) 15.1 % (21-51); MEAN CORPUSCULAR HEMOGLOBIN 33.9 PG (27.0-31.0); MEAN CORPUSCULAR HGB CONC 34.4 g/dL (33.0-36.5); MEAN CORPUSCULAR VOLUME 98.7 FL (78-98); MEAN PLATELET VOLUME 8.5 FL (7.4-10.4); MONOCYTES # (AUTO) 0.7 X10'3 (0-0.9); MONOCYTES % (AUTO) 9.7 % (2-12); NEUTROPHILS # (AUTO) 5.2 X10'3 (1.8-7.7); NEUTROPHILS % (AUTO) 73.9 % (42-75); PLATELET COUNT 149 X10'3 (140-440); RED BLOOD COUNT 3.13 X10'6 (4.70-6.10); RED CELL DISTRIBUTION WIDTH 13.2 % (11.5-14.5)
[2023-09-10] MEDS ORDERED: magnesium citrate 296ml oral solution PO ONE (09:20)
[2023-09-10 09:30] LABS: ALBUMIN 3.2 G/DL (3.4-5.0); ANION GAP 9 (8-16); BLOOD UREA NITROGEN 14 MG/DL (7-18); BUN/CREATININE RATIO 25.5 (10.0-20.0); CALCIUM 8.2 MG/DL (8.5-10.1); CHLORIDE 98 MMOL/L (99-107); CREATININE 0.55 MG/DL (0.60-1.10); GLUCOSE 98 MG/DL (70-104); POTASSIUM 3.5 MMOL/L (3.5-5.1); SODIUM 134 MMOL/L (135-145); TOTAL CARBON DIOXIDE 27.5 MMOL/L (24-32); eCRCL 82 ML/MIN; eGFR > 90 ML/MIN
[2023-09-10] MEDS: acetaminophen 325mg tablet PO PRN (10:05)
[2023-09-10] MEDS ORDERED: ondansetron 4mg rapidly disintigrating tab PO PRN (13:26)
--- NOTE | 2023-09-10 18:14 | NUR ---
Problems reprioritized. Patient report given, questions answered & plan of care reviewed with Dena RN, patient stable at transfer of care.
[2023-09-10] MEDS: dabigatran 150mg capsule PO SCH (21:53)
[2023-09-10] MEDS: atorvastatin 10mg tablet PO SCH (21:55)
[2023-09-11 06:00] VITALS: BP 114/66; PULSE 90; RESP 17; TEMP 98.8; O2SAT 93
[2023-09-11 07:46] LABS: BASOPHILS % (AUTO) 0.3 % (0-1); EOSINOPHILS # (AUTO) 0.2 X10'3 (0-0.9); EOSINOPHILS % (AUTO) 3.2 % (0-6); HEMATOCRIT 30.5 % (42.0-52.0); HEMOGLOBIN 10.3 g/dl (14.0-17.9); LYMPHOCYTES # (AUTO) 1.2 X10'3 (1.1-4.8); LYMPHOCYTES % (AUTO) 15.5 % (21-51); MEAN CORPUSCULAR HEMOGLOBIN 33.2 PG (27.0-31.0); MEAN CORPUSCULAR HGB CONC 33.9 g/dL (33.0-36.5); MEAN CORPUSCULAR VOLUME 98.2 FL (78-98); MEAN PLATELET VOLUME 8.2 FL (7.4-10.4); MONOCYTES # (AUTO) 0.8 X10'3 (0-0.9); MONOCYTES % (AUTO) 11.2 % (2-12); NEUTROPHILS # (AUTO) 5.2 X10'3 (1.8-7.7); NEUTROPHILS % (AUTO) 69.8 % (42-75); PLATELET COUNT 187 X10'3 (140-440); RED BLOOD COUNT 3.11 X10'6 (4.70-6.10); RED CELL DISTRIBUTION WIDTH 13.1 % (11.5-14.5); WHITE BLOOD COUNT 7.5 X10'3 (4.5-11.0)
[2023-09-11 08:00] VITALS: RESP 17; O2SAT 93
[2023-09-11] MEDS ORDERED: furosemide 20MG tablet PO SCH (08:00)
[2023-09-11] MEDS ORDERED: potassium Cl 20 mEq SR tablet PO SCH (08:00)
[2023-09-11 08:03] LABS: ALBUMIN 3.2 G/DL (3.4-5.0); ANION GAP 7 (8-16); BLOOD UREA NITROGEN 10 MG/DL (7-18); BUN/CREATININE RATIO 17.9 (10.0-20.0); CALCIUM 8.4 MG/DL (8.5-10.1); CHLORIDE 99 MMOL/L (99-107); CREATININE 0.56 MG/DL (0.60-1.10); GLUCOSE 99 MG/DL (70-104); POTASSIUM 3.8 MMOL/L (3.5-5.1); SODIUM 132 MMOL/L (135-145); TOTAL CARBON DIOXIDE 25.6 MMOL/L (24-32); eCRCL 80 ML/MIN; eGFR > 90 ML/MIN
[2023-09-11] MEDS: metoclopramide 5 mg/ml inj IV SCH ×2 (08:21)
[2023-09-11] MEDS: dabigatran 150mg capsule PO SCH (08:21)
[2023-09-11] MEDS: magnesium Cl slow-release 64mg tablet PO SCH (08:21)
[2023-09-11] MEDS: sennosides/docusate sodium tablet PO SCH (08:22)
[2023-09-11] MEDS: pantoprazole 40mg Tablet.DR PO SCH (08:22)
[2023-09-11] MEDS: aspirin 81mg tab.chew PO SCH (08:23)
[2023-09-11] MEDS: amiodarone 200mg tablet PO SCH (08:23)
[2023-09-11 11:00] VITALS: BP 138/66; PULSE 88; RESP 18; TEMP 97.7; O2SAT 93
--- NOTE | 2023-09-11 16:15 | NUR ---
Pt stable for transfer to [facility] per Dr. Dias. All discharge instructions reviewed with patient and all questions answered, pt verbalized understanding. PIV discontinued, cannula intact. Tele discontinued. All belongings collected and sent with patient. Wheeled to lobby and picked up by [employer].
[2023-09-11] MEDS ORDERED: dronedarone hcl 400mg tablet PO SCH (20:00)
[2023-09-11] MEDS ORDERED: metoprolol tartrate 12.5mg (1/2 tablet) PO SCH (20:00)
== END 2023-09-11 15:47 | DRG 219 ==
LOC: ER 18:49 → ED HOLD 23:18 → PCU 3S 09-04 16:00 → ICU 2S 09-06 08:00 → PCU 3S 09-09 20:00
PROVIDERS: ADMIT Internal Medicine; ATTEND Family Medicine
PROC: 02100Z9 Bypass Coronary Artery, One Artery from Left Internal Mammary, Open Approach (ICD-10-PCS; 2023-09-06)
PROC: 021109W Bypass Coronary Artery, Two Arteries from Aorta with Autologous Venous Tissue, Open Approach (ICD-10-PCS; 2023-09-06)
PROC: 02UX0JZ Supplement Thoracic Aorta, Ascending/Arch with Synthetic Substitute, Open Approach (ICD-10-PCS; 2023-09-06)
PROC: 06BQ4ZZ Excision of Left Saphenous Vein, Percutaneous Endoscopic Approach (ICD-10-PCS; 2023-09-06)
PROC: 02UX0JZ Supplement Thoracic Aorta, Ascending/Arch with Synthetic Substitute, Open Approach (ICD-10-PCS; 2023-09-06)
PROC: 0PS004Z Reposition Sternum with Internal Fixation Device, Open Approach (ICD-10-PCS; 2023-09-06)
PROC: B24BZZ4 Ultrasonography of Heart with Aorta, Transesophageal (ICD-10-PCS; 2023-09-06)
PROC: 5A1221Z Performance of Cardiac Output, Continuous (ICD-10-PCS; 2023-09-06)
PROC: 02L70CK Occlusion of Left Atrial Appendage with Extraluminal Device, Open Approach (ICD-10-PCS; 2023-09-06)
PROC: 03HY32Z Insertion of Monitoring Device into Upper Artery, Percutaneous Approach (ICD-10-PCS; 2023-09-06)
PROC: 02HV33Z Insertion of Infusion Device into Superior Vena Cava, Percutaneous Approach (ICD-10-PCS; 2023-09-06)
PROC: 02RF08Z Replacement of Aortic Valve with Zooplastic Tissue, Open Approach (ICD-10-PCS; principal; 2023-09-06 08:22)
DX: I25.110 Atherosclerotic heart disease of native coronary artery with unstable angina pectoris (principal); I50.23 Acute on chronic systolic (congestive) heart failure; I48.19 Other persistent atrial fibrillation; Q25.49 Other congenital malformations of aorta; Z79.899 Other long term (current) drug therapy; D64.9 Anemia, unspecified; I10 Essential (primary) hypertension; I08.0 Rheumatic disorders of both mitral and aortic valves; M81.0 Age-related osteoporosis without current pathological fracture; I70.0 Atherosclerosis of aorta; E87.70 Fluid overload, unspecified; E78.00 Pure hypercholesterolemia, unspecified; D69.6 Thrombocytopenia, unspecified; Z83.3 Family history of diabetes mellitus; Z85.828 Personal history of other malignant neoplasm of skin; Z87.891 Personal history of nicotine dependence; I11.0 Hypertensive heart disease with heart failure
CPT/HCPCS: 0232T; 93306; 93312; 93325; 99285; 36415; 36600; 71045; 71046; 71250; 80048; 80053; 81001; 82248; 82330; 82435; 82803; 82947; 82948; 83036; 83735; 83880; 84100; 84132; 84295; 84439; 84443; 84484; 85007; 85018; 85025; 85347; 85384; 85610; 85730; 86022; 86885; 86900; 86901; 86920; 87081; 88300; 93005; 93880; 93970; 94002; 94003; 94010; 94664; 94668; 94760; 97110; 97116; 97161; 97530; 97535; A4333; A4615; A4618; A6213; A6258; A6449; A7000; C1713; C1751; C1768; C9290; G0378; J0131; J0171; J0610; J0690; J1100; J1250; J1644; J1650; J1815; J2060; J2150; J2250; J2370; J2405; J2720; J2765; J2930; J3475; J3480; J3490; J7030; J7040; J7050; J7060; J7120; P9045; P9047

== ENCOUNTER 2023-09-24 11:59 | Outpatient (CLI) | payer MEDICARE, OTHER ==
[~2023-09-24 11:59] MED LIST changes: -CALC950T2 PO; -LIDOcaine 2% (20 mg/ml) 5ml cardiac syringe ONE; -MAGNESIUM SULFATE 4 MEQ/ML (5gm/10ml) injection ONE; -NORepinephrine 1 mg/ml inj IV ONE; -albumin (human) 25% 100 ML IV solution IV ONE; -aminocaproic acid 250 MG/1 ML inj. ONE; -calcium chloride 100 MG/1 ML inj IV ONE; -heparin 1,000 units/ml 10ml inj ONE; -heparin 10,000 units/1 ML INJ ONE; -mannitol 12.5gm/50mL VIAL IV ONE; -methylPREDNISolone sod succ 1000mg vial ONE; -potassium Cl 2 mEq/ml inj IV ONE; -sodium bicarbonate (8.4%) 1 mEq/ml syringe ONE
== END 2023-09-24 23:59 | disposition home or self-care (01) ==
LOC: RAD 11:59
PROVIDERS: ATTEND Thoracic Surgery (Cardiothoracic Vascular Surgery)
DX: J90 Pleural effusion, not elsewhere classified (principal); R06.02 Shortness of breath; Z95.1 Presence of aortocoronary bypass graft
CPT/HCPCS: 71046

== ENCOUNTER 2023-10-03 06:30 | Day surgery (SDC) | payer MEDICARE, OTHER ==
[2023-10-03] VITALS (7 sets, daily range): BP systolic 120–135; BP diastolic 66–87; PULSE 80–95; RESP 16; TEMP 98.3; O2SAT 96–99
[~2023-10-03] VITALS: Ht 162.6 cm; Wt 64.5 kg
[2023-10-03] MEDS ORDERED: PANT40TA54 PO (07:20)
[2023-10-03] MEDS ORDERED: POTA-207 PO (07:20)
[2023-10-03] MEDS ORDERED: FURO20TA4 PO (07:20)
== END 2023-10-03 10:00 | disposition home or self-care (01) ==
LOC: SSTAY O 06:30
PROVIDERS: ATTEND Radiology Vascular & Interventional Radiology
DX: J90 Pleural effusion, not elsewhere classified (principal); I35.0 Nonrheumatic aortic (valve) stenosis; I48.20 Chronic atrial fibrillation, unspecified; I25.10 Atherosclerotic heart disease of native coronary artery without angina pectoris; Z95.1 Presence of aortocoronary bypass graft; Z95.2 Presence of prosthetic heart valve; Z79.899 Other long term (current) drug therapy; Z85.828 Personal history of other malignant neoplasm of skin; Z98.42 Cataract extraction status, left eye; Z98.41 Cataract extraction status, right eye; Z98.890 Other specified postprocedural states; Z83.3 Family history of diabetes mellitus
CPT/HCPCS: 32555; C1729

== ENCOUNTER 2024-02-19 09:31 | Outpatient (CLI) | payer MEDICARE, OTHER ==
[~2024-02-19 09:31] MED LIST changes: -CELE-127 PO; +FURO20TA4 PO; +PANT40TA54 PO; +POTA-207 PO
[2024-02-19 10:21] LABS: ALBUMIN 3.7 G/DL (3.4-5.0); ANION GAP 9 (8-16); BLOOD UREA NITROGEN 13 MG/DL (7-18); BUN/CREATININE RATIO 16.3 (10.0-20.0); CALCIUM 8.8 MG/DL (8.5-10.1); CHLORIDE 103 MMOL/L (99-107); GLUCOSE 95 MG/DL (70-104); SODIUM 138 MMOL/L (135-145); TOTAL CARBON DIOXIDE 26.4 MMOL/L (24-32); eGFR > 90 ML/MIN
[2024-02-19] MEDS ORDERED: iohexol 350MG/ML 100ml bottle IV ONE (10:28)
== END 2024-02-19 23:59 | disposition home or self-care (01) ==
LOC: 64 CT 09:31
PROVIDERS: ATTEND Student in an Organized Health Care Education/Training Program
DX: I08.0 Rheumatic disorders of both mitral and aortic valves (principal); I65.23 Occlusion and stenosis of bilateral carotid arteries; R42 Dizziness and giddiness; E78.5 Hyperlipidemia, unspecified; I10 Essential (primary) hypertension; R06.02 Shortness of breath; Z95.4 Presence of other heart-valve replacement
CPT/HCPCS: 36415; 75572; 80048; J3490; Q9967